=== PATIENT | female | born 1945 | race Caucasian/White ===

== ENCOUNTER 2019-10-09 09:52 | Outpatient (CLI) | payer MEDICARE | END 2019-10-09 23:59 | disposition home or self-care (01) | LOC: CFH 09:52 | PROVIDERS: ATTEND Internal Medicine Cardiovascular Disease | DX: R01.1 Cardiac murmur, unspecified (principal); I10 Essential (primary) hypertension; E78.5 Hyperlipidemia, unspecified | CPT/HCPCS: 93306 ==